=== PATIENT | male | born 1990 | race Caucasian/White ===

== ENCOUNTER 2017-07-11 03:20 | Emergency (ER) | payer OTHER ==
[~2017-07-11] VITALS: Ht 175.3 cm; Wt 65.0 kg
[~2017-07-11 03:20] MED LIST: IBUP600T26 PO; ROBA750T3 PO; Z.0.NO CURRENT MEDS
[2017-07-11 03:26] VITALS: BP 140/82; PULSE 137; RESP 18; TEMP 98; O2SAT 97
[2017-07-11] MEDS ORDERED: DIPHTH/TETANUS/ACEL PERTUSSIS (BOOSTER) 0.5 ML VIAL/PFS IM ONE (03:45)
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
== END 2017-07-11 06:00 | disposition home or self-care (01) ==
LOC: NEPC 03:20
DX: S00.03XA Contusion of scalp, initial encounter (principal); S00.01XA Abrasion of scalp, initial encounter; X58.XXXA Exposure to other specified factors, initial encounter; Y93.89 Activity, other specified; Y92.009 Unspecified place in unspecified non-institutional (private) residence as the place of occurrence of the external cause; Z23 Encounter for immunization
CPT/HCPCS: 70450; 72125; 90471; 90715